=== PATIENT | female | born 1960 | race Caucasian/White ===

== ENCOUNTER 2016-09-27 19:20 | Emergency (ER) | payer OTHER ==
[~2016-09-27] VITALS: Ht 157.5 cm; Wt 87.1 kg
[~2016-09-27 19:20] MED LIST: ACETAMINOPHEN-1 EAC1 ORAL; ATARAX25 MG ORAL; CYCLOBENZAPRINE10 MG ORAL; GEODON20 MG ORAL; HYDROmorphone 1mg/ml Carpuject IVP ONE; PROAIR HFA8.5 GM INH; RANITIDINE HCL150 MG ORAL; SPIRIVA18 MCG INH; TRAMADOL HCL50 MG ORAL; TRAZODONE HCL50 MG ORAL; XOPENEX1.25 MG/3 HHN; ZYRTEC10 MG ORAL
[2016-09-27 19:49] LABS: BASOPHILS % (AUTO) 0.9 % (0.0-2.0); EOSINOPHILS % (AUTO) 2.7 % (0.0-3.0); LYMPHOCYTES % (AUTO) 25.7 % (20.0-45.0); MEAN CORPUSCULAR HEMOGLOBIN 32.9 PG (27.0-31.0); MEAN CORPUSCULAR HGB CONC 35.8 G/DL (32.0-36.0); MEAN CORPUSCULAR VOLUME 92 FL (80-99); MEAN PLATELET VOLUME 7.8 FL (6.5-10.1); MONOCYTES % (AUTO) 4.9 % (1.0-10.0); NEUTROPHILS % (AUTO) 65.8 % (45.0-75.0); PLATELET COUNT 204 K/UL (150-450); RED BLOOD COUNT 4.28 M/UL (4.20-5.40); RED CELL DISTRIBUTION WIDTH 11.7 % (11.6-14.8); WHITE BLOOD COUNT 7.1 K/UL (4.8-10.8)
[2016-09-27 20:07] LABS: INR 0.9 (0.9-1.1); PROTHROMBIN TIME 9.4 SEC (9.30-11.50)
[2016-09-27 20:13] LABS: ALANINE AMINOTRANSFERASE 15 U/L (3-33); ALBUMIN/GLOBULIN RATIO 1.2 (1.0-2.7); ANION GAP 11 (5-15); ASPARTATE AMINO TRANSFERASE 19 U/L (5-40); CALCIUM 9.9 mg/dL (8.6-10.2); CARBON DIOXIDE 29 mEQ/L (20-30); CHLORIDE 103 mEQ/L (98-107); CREATININE 1.1 mg/dL (0.5-0.9); HEMOLYSIS 7; SODIUM 143 mEQ/L (135-145); TOTAL PROTEIN 7.8 g/dL (6.6-8.7)
[2016-09-27] MEDS ORDERED: IBUPROFEN600 MG ORAL (21:54)
[2016-09-27 22:28] VITALS: BP 128/81
--- NOTE | 2016-09-28 14:18 | Emergency Room Report ---
History of Present Illness General Chief Complaint: Lower Extremity Injury Source: Patient, EMS Present Illness HPI 56-year-old female presents to ED for evaluation. Per EMS patient had a fall in her bathroom. Patient states she fell and landed on her left side of body. Patient's are complaining of left hip pain, left knee pain and left shoulder pain. Pain is a 10 out of 10. Sharp. Nonradiating. Unable to bear weight. Denies any other injuries. No other aggravating or leading factors. Denies any other associated symptom Allergies: Coded Allergies: No Known Allergies (Unverified , 08/13/13) Patient History Past Medical History: asthma, COPD, psych hx Past Surgical History: none Pertinent Family History: none Social History: Denies: alcohol use, drug use, smoking Now: No Immunizations: UTD Reviewed Nursing Documentation: PMH: Agreed, PSxH: Agreed Nursing Documentation-PMH Hx Asthma: Yes - EMPHASYMA Hx COPD: Yes Hx Gastrointestinal Problems: Yes - calculus of gallbladder,hep C History Of Psychiatric Problem: Yes - BI-POLAR ANXIETY Review of Systems All Other Systems: negative except mentioned in HPI Physical Exam Vital Signs Date Time Temp Pulse Resp B/P Pulse Ox O2 Delivery O2 Flow Rate FiO2 09/27/16 18:54 98.8 90 20 133/76 98 Room Air Sp02 EP Interpretation: reviewed, normal General Appearance: alert, GCS 15, non-toxic, moderate distress Head: normocephalic Eyes: bilateral eye PERRL, bilateral eye normal inspection ENT: normal ENT inspection Neck: normal inspection Respiratory: chest non-tender, lungs clear, normal breath sounds, speaking full sentences Cardiovascular #1: regular rate, rhythm, no edema Gastrointestinal: normal bowel sounds, non tender, soft, non-distended, no guarding, no rebound Rectal: deferred Genitourinary: no CVA tenderness Musculoskeletal: tender - L shoulder, L hip Neurologic: alert, oriented x3, responsive, motor strength/tone normal, sensory intact, speech normal Psychiatric: anxious Skin: normal inspection Lymphatic: normal inspection Medical Decision Making Diagnostic Impression: Primary Impression: Fall Qualified Codes: W19.XXXA - Unspecified fall, initial encounter Additional Impressions: Contusion, hip Qualified Codes: S70.02XA - Contusion of left hip, initial encounter Opiate dependence Qualified Codes: F11.20 - Opioid dependence, uncomplicated Shoulder contusion Qualified Codes: S40.012A - Contusion of left shoulder, initial encounter ER Course Hospital Course 56-year-old female presents to ED with left shoulder and left pain status post fall Differential diagnoses include: Fracture, dislocation, sprain, contusion Clinical course Patient placed on stretcher. After initial history and physical, I ordered pain medications and Xrays of L shoulder, hip, pelvis, Lspine, L knee Xrays prelim read shows no acute fracture/dislocation. Confirmed by radiology On reassessment patient states pain is improved. Is requesting pain medications to be discharged. I reviewed CURES patient received approximately 60 [place] tablets one week ago. Patient states she is out of her medication. I explained to the patient I cannot provide any additional medications and she will need to followup with PMD Diagnosis - fall, hip contusion, opiate dependence, shoulder contusion Stable and discharged to home with prescription for Motrin. apply ice, keep elevated. weight bear as tolerated. Followup with PMD. Return to ED if symptoms recur or worsen Labs Test 09/27/16 19:20 White Blood Count 7.1 K/UL (4.8-10.8) Red Blood Count 4.28 M/UL (4.20-5.40) Hemoglobin 14.1 G/DL (12.0-16.0) Hematocrit 39.3 % (37.0-47.0) Mean Corpuscular Volume 92 FL (80-99) Mean Corpuscular Hemoglobin 32.9 PG (27.0-31.0) Mean Corpuscular Hemoglobin Concent 35.8 G/DL (32.0-36.0) Red Cell Distribution Width 11.7 % (11.6-14.8) Platelet Count 204 K/UL (150-450) Mean Platelet Volume 7.8 FL (6.5-10.1) Neutrophils (%) (Auto) 65.8 % (45.0-75.0) Lymphocytes (%) (Auto) 25.7 % (20.0-45.0) Monocytes (%) (Auto) 4.9 % (1.0-10.0) Eosinophils (%) (Auto) 2.7 % (0.0-3.0) Basophils (%) (Auto) 0.9 % (0.0-2.0) Prothrombin Time 9.4 SEC (9.30-11.50) Prothromb Time International Ratio 0.9 (0.9-1.1) Activated Partial Thromboplast Time 24 SEC (23-33) Sodium Level 143 mEQ/L (135-145) Potassium Level 4.0 mEQ/L (3.4-4.9) Chloride Level 103 mEQ/L (98-107) Carbon Dioxide Level 29 mEQ/L (20-30) Anion Gap 11 (5-15) Blood Urea Nitrogen 20 mg/dL (7-23) Creatinine 1.1 mg/dL (0.5-0.9) Estimat Glomerular Filtration Rate 51.0 mL/min (>60) Glucose Level 130 mg/dL (74-106) Calcium Level 9.9 mg/dL (8.6-10.2) Total Bilirubin < 0.2 mg/dL (0.0-1.2) Aspartate Amino Transf (AST/SGOT) 19 U/L (5-40) Alanine Aminotransferase (ALT/SGPT) 15 U/L (3-33) Alkaline Phosphatase 68 U/L (35-104) Total Protein 7.8 g/dL (6.6-8.7) Albumin 4.4 g/dL (3.5-5.2) Globulin 3.4 g/dL Albumin/Globulin Ratio 1.2 (1.0-2.7) Other X-Ray Diagnostic Results Other X-Ray Diagnostic Results #1: X-Ray ordered: L shoulder # of Views/Limited Vs Complete: 3 View Indication: Pain EP Interpretation: Yes Interpretation: no dislocation, no soft tissue swelling, no fractures Impression: No acute disease Interpreting ER Provider: Electronically signed by Erick Baxter MD Other X-Ray Diagnostic Results #2: X-Ray ordered: L hip # of Views/Limited Vs Complete: 3 View Indication: Pain EP Interpretation: Yes Interpretation: no dislocation, no soft tissue swelling, no fractures Impression: No acute disease Interpreting ER Provider: Electronically signed by Erick Baxter MD Other X-Ray Diagnostic Results #3: X-Ray ordered: Pelvis # of Views/Limited Vs Complete: 1 View Indication: Pain EP Interpretation: Yes Interpretation: no dislocation, no soft tissue swelling, no fractures Impression: No acute disease Interpreting ER Provider: Electronically signed by Erick Baxter MD Other X-Ray Diagnostic Results #4: X-Ray ordered: L spine # of Views/Limited Vs Complete: 3 View Indication: Pain EP Interpretation: Yes Interpretation: no dislocation, no soft tissue swelling, no fractures Impression: No acute disease Interpreting ER Provider: Electronically signed by Erick Baxter MD Other X-Ray Diagnostic Results #5: X-Ray ordered: L knee # of Views/Limited Vs Complete: 3 View Indication: Pain EP Interpretation: Yes Interpretation: no dislocation, no soft tissue swelling, no fractures Impression: No acute disease Interpreting ER Provider: Electronically signed by Erick Baxter MD Last Vital Signs Date Time Temp Pulse Resp B/P Pulse Ox O2 Delivery O2 Flow Rate FiO2 09/27/16 22:28 98.8 20 128/81 98 Room Air 09/27/16 18:54 90 Status: improved Disposition: HOME, SELF-CARE Condition: Stable Scripts Ibuprofen* (MOTRIN*) 600 Mg Tablet 600 MG ORAL Q8H Y for For Pain, #30 TAB 0 Refills Prov: ERICK BAXTER M.D. 09/27/16 Patient Instructions: Hip Pain ERICK BAXTER M.D. Sep 28, 2016 14:18
== END 2016-09-27 22:29 | disposition home or self-care (01) ==
LOC: EDBD 19:20 → EMR 19:25
DX: S70.02XA Contusion of left hip, initial encounter (principal); S40.012A Contusion of left shoulder, initial encounter; F11.20 Opioid dependence, uncomplicated; W01.0XXA Fall on same level from slipping, tripping and stumbling without subsequent striking against object, initial encounter; Y93.9 Activity, unspecified; Y92.002 Bathroom of unspecified non-institutional (private) residence as the place of occurrence of the external cause; J44.9 Chronic obstructive pulmonary disease, unspecified; Z86.19 Personal history of other infectious and parasitic diseases
CPT/HCPCS: 36415; 72020; 72170; 73030; 73502; 73562; 80053; 85025; 85610; 85730; 96374; 99284; J1170